=== PATIENT | male | born 1970 | race Caucasian/White ===

== ENCOUNTER 2024-03-07 19:38 | Emergency (ER) | payer BC, SELFPAY ==
[2024-03-07 19:40] VITALS: BP 155/110
[2024-03-07 20:38] LABS: % Basophils 0.7 % (0-2); % Eosinophils 1.1 % (0-6); % Immature Granulocytes 0.4 % (0-0.5); % Lymphocytes 17.9 % (20.5-51.1); % Monocytes 8.5 % (1.7-9.3); % Neutrophils 71.4 % (42.2-75.2); Absolute Basophils 0.1 10^3/uL (0-0.2); Absolute Eosinophils 0.1 10^3/uL (0-0.7); Absolute Lymphocytes 1.4 10^3/uL (1.2-3.4); Absolute Monocytes 0.7 10^3/uL (0.1-0.6); Absolute Neutrophils 5.7 10^3/uL (1.4-6.5); Hematocrit 39.5 % (39.0-52.0); Hemoglobin 14.7 g/dL (13.0-18.0); Mean Corp Hgb Conc. 37.2 g/dL (33.0-37.0); Mean Corpuscular Hgb 32.5 pg (27.0-31.0); Mean Corpuscular Volume 87.4 fL (80.0-94.0); Mean Platelet Volume 9.9 fL (7.4-10.4); Nucleated Red Blood Cells % 0 % (-); Platelet Count 214 10^3/uL (130-400); Red Blood Cell Count 4.52 10^6/uL (4.70-6.10); Red Cell Dist. Width 13.2 % (11.5-14.5)
[2024-03-07] MEDS: TORADOL 30 MG IV (20:56)
[2024-03-07 21:05] LABS: ALT (SGPT) 34 U/L (0-50); AST (SGOT) 32 U/L (17-59); Albumin 4.1 g/dl (3.5-5.0); Alkaline Phosphatase 80 U/L (38-126); Blood Urea Nitrogen 18 mg/dl (9-20); Calcium 9.5 mg/dl (8.4-10.2); Carbon Dioxide 25 mmol/L (22-30); Chloride 107 mmol/L (98-107); Glucose 113 mg/dl (70-99); Potassium 3.7 mmol/L (3.5-5.1); Sodium 139 mmol/L (135-145); Total Bilirubin 0.8 mg/dl (0.2-1.3); Total Protein 6.7 g/dl (6.3-8.2); eGFR > 60.00
[2024-03-07 21:06] LABS: Lipase 108 U/L (23-300)
[2024-03-07 21:18] LABS: Urine Albumin Negative (Neg - Trace); Urine Bilirubin Negative (Negative); Urine Character Clear (Clear); Urine Color Yellow; Urine Glucose Negative (Negative); Urine Ketone Negative (Negative); Urine Leukocyte Negative (Negative); Urine Nitrite Negative (Negative); Urine Occult Blood Negative (Negative); Urine Specific Gravity 1.015 (<1.030); Urine Urobilinogen Negative (Neg - 1+)
[2024-03-07 21:21] VITALS: BP 137/81
--- NOTE | 2024-03-07 22:41 | ED.GENMED ---
History of Present Illness
General
Chief Complaint: Abdominal Pain
Source: patient
Exam Limitations: none
Time Seen by Provider: 03/07/24 20:07
Nursing documentation reviewed up to this point in time: agreed with
Travel History
Have you had any contact with someone who has COVID-19?: No
Do you have any symptoms of coronavirus? Fever > 100 degrees, chills, cough, shortness of breath, sore throat, loss of taste or smell, muscle aches, or headache?: No
History of Present Illness
History of Present Illness:
53-year-old male presenting to the emergency department today for concerns of left lower quadrant. Symptoms started 3 days ago gradually worsening. Denies nausea vomiting has had diarrhea denies any fevers chest pain shortness of breath.
Past History
Past History
ED Past Medical History: GERD and HTN
ED Past Surgical History: Appendectomy, Orthopedic and Other (4 hernia surgeries Corneal transplant)
Social History
Tobacco: Non-smoker
Alcohol: Occasional
Personal:
Living: with family
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
Review of Systems
Review of Systems
Allergies reviewed?: Yes
All Other Systems: ROS reviewed and negative except as documented in HPI and ROS
Phy Exam
Physical Exam
Physical Exam:
GENERAL: Alert , in no apparent distress
EYE: pupils equal and reactive
NECK: Supple, no significant adenopathy.
ENT: o/p clr, mmm.
CARDIAC: Regular rate and rhythm .
LUNGS: Clear breath sounds bilaterally, no acute respiratory distress, no wheezes/rales/rhonchi
ABDOMEN left lower quadrant abdominal pain otherwise benign abdomen
NEUROLOGICAL: Alert and oriented, no focal neuro deficits
SKIN: Warm and dry, skin intact.
MUSCULOSKELETAL: No edema, well perfused.
PSYCH: Normal and appropriate interaction.
Course
Orders/Labs/Results
Orders:
Orders
03/07/24 20:25
IV Insert/Care/Rem.- Treatment PRN
03/07/24 20:28
Complete Blood Count/With Diff Urgent
Comprehensive Metabolic Panel Urgent
Lipase Urgent
03/07/24 20:49
CT Abd/Pel (IV only)-DH only Urgent
Comment:
Reason For Exam: llq pain
Ketorolac [Toradol] 30 mg IV NOW STA
03/07/24 21:10
Urinalysis Reflex To Culture Urgent
Date Specimen was Collected: 03/07/24
Time Specimen was Collected: 21:07
03/07/24 22:41
Amoxicillin 875 mg/Clav 125 mg [Augmentin 875 mg/125 mg] 1 tablet PO NOW STA
Abnormal Lab Results
03/07/24
20:28
RBC 4.52 L 10^6/uL
(4.70-6.10)
MCH 32.5 H pg
(27.0-31.0)
MCHC 37.2 H g/dL
(33.0-37.0)
Absolute Monos (auto) 0.7 H 10^3/uL
(0.1-0.6)
Lymphocytes % 17.9 L %
(20.5-51.1)
Glucose 113 H mg/dl
(70-99)
03/07/24 20:28
03/07/24 20:28
Vital Signs
Initial and Last Documented VS:
Initial Vital Signs
Temp Pulse Resp BP Pulse Ox
98.2 F 83 16 155/110 97
03/07/24 19:40 03/07/24 19:40 03/07/24 19:40 03/07/24 19:40 03/07/24 19:40
Last Documented Vital Signs
Temp Pulse Resp BP Pulse Ox
98.2 F 69 18 137/81 98
03/07/24 19:40 03/07/24 21:21 03/07/24 21:21 03/07/24 21:21 03/07/24 21:21
MDM/Problems Addressed
MDM/Problems Addressed:
53-year-old male presenting to the emergency department with 3 days of worsening left lower quad abdominal pain with mild diarrhea. No nausea or vomiting. Signs normal here afebrile. Labs normal. CT scan showing mild diverticulitis. Patient
started on antibiotics and given information for GI follow-up. Return precautions given.
*Critical Care Note
Total Time (30-74mins, 75-104mins- exclusive of procedures): Not Applicable
ED Attending Note
-
Portions of this chart may have been created with voice recognition software.� Occasional wrong word or��sound alike� substitutions may have occurred due to the inherent limitations of voice recognition software.
Discharge Plan
Departure
Patient Disposition: Home (Routine Discharge)
Date of Disposition: 03/07/24
Time of Disposition: 22:41
Patient with high blood pressure during this ER visit?: No
Condition: Good
Covid-19: Not Applicable
Discharge Problem:
Diverticulitis
Instructions: Diverticulitis (DC)
Prescriptions:
New
amoxicillin-pot clavulanate 875-125 mg tablet
1 tab PO Q12H 7 Days Qty: 14 0RF
Referrals:
Wei Douglass MD [Active] - Follow up in 5-7 days
Silvia Handley DO [Family Provider] -
Activity Restrictions/Additional Instructions:
You came to the emergency department today with concerns of left lower quadrant pain. You are found to have diverticulitis.. Please take Augmentin twice daily and progress your diet over the next week or so. Please follow up close with GI.
Return to the emergency department for worsening, new or concerning symptoms
Interventions
Interventions:
*Risk Screen - Suicide Last Done: 03/07/24 20:31
*General Assessment Last Done: 03/07/24 19:40
*Neglect/Abuse Screening Last Done: 03/07/24 20:31
ED- Fall Risk Assessment Last Done: 03/07/24 20:31
*ED COVID-19 Vaccine History Last Done: 03/07/24 19:40
LS-Ugeuwp-Ntxqkgacew Assessment Last Done: 03/07/24 20:03
Discharge Date and Time
Print Language: PORTUGUESE
[2024-03-07] MEDS: AUGMENTIN 875 MG/125 MG 1 TABLET PO (22:49)
== END 2024-03-07 23:04 | disposition home or self-care (01) ==
LOC: EMR 19:38
PROVIDERS: Physician Assistant; EMERGENCY PHYSICIAN Emergency Medicine; FAMILY PHYSICIAN Family Medicine Addiction Medicine
DX: K57.92 Diverticulitis of intestine, part unspecified, without perforation or abscess without bleeding (principal); K21.9 Gastro-esophageal reflux disease without esophagitis; I10 Essential (primary) hypertension
CPT/HCPCS: 99284; 96374; 74177; 80053; 81003; 83690; 85025; Q9967

== ENCOUNTER 2025-04-01 07:48 | Emergency (ER) | payer BC, SELFPAY ==
[2025-04-01 07:51] VITALS: BP 157/100
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
== END 2025-04-01 11:26 | disposition home or self-care (01) ==
LOC: EMR 07:48
PROVIDERS: EMERGENCY PHYSICIAN Emergency Medicine
DX: M25.462 Effusion, left knee (principal); M79.604 Pain in right leg; M71.22 Synovial cyst of popliteal space [Baker], left knee; M17.12 Unilateral primary osteoarthritis, left knee; I10 Essential (primary) hypertension; K21.9 Gastro-esophageal reflux disease without esophagitis; Z56.6 Other physical and mental strain related to work; Z88.8 Allergy status to other drugs, medicaments and biological substances
CPT/HCPCS: 99284; 73564; 93971

== ENCOUNTER → 2025-05-26 20:20 | Outpatient (REF) | payer BC, SELFPAY | LOC: MRI 3T 20:20 | PROVIDERS: ATTENDING PHYSICIAN Orthopaedic Surgery; FAMILY PHYSICIAN Family Medicine Addiction Medicine | DX: M23.92 Unspecified internal derangement of left knee (principal) | CPT/HCPCS: 73721 ==

== ENCOUNTER 2025-07-16 02:53 | Emergency (ER) | payer BC, SELFPAY ==
[2025-07-16 02:57] VITALS: BP 144/93
[2025-07-16 03:17] VITALS: BP 152/94
[2025-07-16 03:19] VITALS: BMI 31.4
[2025-07-16] MEDS: TORADOL 30 MG IM (04:11)
--- NOTE | 2025-07-16 04:15 | ED.GENMED ---
History of Present Illness
General
Chief Complaint: Musculo-Skeletal Complaint
Source: patient
Exam Limitations: none
Time Seen by Provider: 07/16/25 03:31
Nursing documentation reviewed up to this point in time: agreed with
History of Present Illness
History of Present Illness:
The patient is a 54-year-old male with pmh of htn, herniated discs, osteoarthritis, who presents with generalized joint pain described as worsening over the last two and a half weeks. The patient reports having surgery on the left knee for a
meniscus tear on the , prior to which he received a shingles vaccination. He initially attributed shoulder pain to the vaccination; however, the pain has since progressed. The patient describes experiencing severe pain primarily in both
shoulders, worsened during movement, and a sensation that is particularly intense in the left shoulder, extending to the bicep and elbow. Pain was described as 'like a knife gouging' into the shoulder. The patient reports profound weakness, noting
difficulty in rising from a chair without assistance, dressing, or lifting his arms above a certain height. The pain and weakness are most severe in the morning, improving slightly with movement. He also mentions a sensation of tingling in the
hands. The patient has been unable to sleep due to the shoulder pain, which prompted a visit to the Emergency Room after consultation with his primary care physician was unavailable. He denies any obvious injury, recent heavy lifting, or infection
symptoms. He has not experienced similar symptoms in the past. The post-surgical administration of hydrocodone for his knee pain was ineffective against his generalized pain.
Past History
Past History
ED Past Medical History: GERD and HTN
ED Past Surgical History: Appendectomy, Orthopedic and Other (4 hernia surgeries Corneal transplant)
Social History
Tobacco: Non-smoker
Alcohol: Occasional
Personal:
Living: with family
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
Review of Systems
Review of Systems
All Other Systems: ROS reviewed and negative except as documented in HPI and ROS
Phy Exam
General Physical Exam
General Presentation: well appearing and no apparent distress
General Skin: warm and dry
General Habitus: normal
General Mental: alert
General Hydration: appears well hydrated
ENT Exam
ENT Exam: EOMI
Eye Exam
Eye Exam: PERRL and EOMI
Cardiovascular Exam
Cardiovascular Exam: regular rate/rhythm and no murmur
Pulmonary Exam
Pulmonary Exam: lungs clear
Neurological Exam
Neurological Exam: alert, oriented x3, CN II-XII intact, no motor deficits and no sensory deficits
Musculoskeletal Exam
Musculoskeletal Exam: full ROM (Full ROM of bilateral upper and lower extremities, no bony deformities, pain illicited with abduction of the shoulders bilaterally and flexion of the hips) and no edema
Skin Exam
Skin Exam: normal color and warm/dry
Psychiatric Exam
Psychiatric Exam: normal mood/affect
Course
Orders/Labs/Results
Orders:
Orders
07/16/25 03:45
Ketorolac [Toradol] 30 mg IM NOW STA
07/16/25 03:47
CR Shoulder - Left Min 2 View* Urgent
Comment:
Reason For Exam: left ant shoulder pain
07/16/25 04:07
CPK [Creatine Phosphokinase] Urgent
CRP [C-Reactive Protein] Urgent
Complete Blood Count/With Diff Urgent
Comprehensive Metabolic Panel Urgent
ESR [Erythrocyte Sed Rate] Urgent
Abnormal Lab Results
07/16/25
04:07
RBC 4.56 L 10^6/uL
(4.70-6.10)
Neutrophils % 76.7 H %
(42.2-75.2)
Lymphocytes % 14.5 L %
(20.5-51.1)
ESR 25 H mm/hour
(0-20)
Glucose 120 H mg/dl
(70-99)
Creatine Kinase 51 L U/L
(55-170)
C-Reactive Protein 44.80 H mg/L
(0.0-10.00)
07/16/25 04:07
07/16/25 04:07
Vital Signs
Initial and Last Documented VS:
Initial Vital Signs
Temp Pulse Resp BP Pulse Ox
98.6 F 85 16 144/93 97
07/16/25 02:57 07/16/25 02:57 07/16/25 02:57 07/16/25 02:57 07/16/25 02:57
Last Documented Vital Signs
Temp Pulse Resp BP Pulse Ox
98.6 F 82 16 151/92 95
07/16/25 02:57 07/16/25 06:22 07/16/25 06:22 07/16/25 06:22 07/16/25 06:22
MDM/Problems Addressed
Differential Diagnosis Includes:
1. Polymyositis
2. Rheumatoid arthritis
3. Rotator cuff tendonitis or tear
4. Myofascial pain syndrome
5. Cervical radiculopathy
6. Subacromial bursitis
7. Frozen shoulder (Adhesive capsulitis)
8. Fibromyalgia
9. Rhabdomyolysis
10. Osteoarthritis
MDM/Problems Addressed:
The patient is a 54-year-old male with pmh of htn, herniated discs, osteoarthritis, who presents with generalized joint pain described as worsening over the last two and a half weeks. Pain is localized to bilateral hips and shoulders. He also has
proximal muscle weakness. No inciting trauma. Pain did slightly improve with toradol and muscle relaxant. CK is not elevated. Inflammatory markers are elevated, symptoms concerning for a polymyositis vs osteoarthritis. Spoke with ED attending. Will
trial course of Prednisone, I recommended that patient be evaluated by rheumatology. Patient stable for discharge. Discussed strict return precautions.
*Pulse Oximetry
SaO2: 97
Oxygen Mode of Delivery: Room air
Patient hypoxic: no
*Critical Care Note
Total Time (30-74mins, 75-104mins- exclusive of procedures): Not Applicable
ED Attending Note
-
Portions of this chart may have been created with voice recognition software.� Occasional wrong word or��sound alike� substitutions may have occurred due to the inherent limitations of voice recognition software.
Discharge Plan
Departure
Patient Disposition: Home (Routine Discharge)
Date of Disposition: 07/16/25
Time of Disposition: 06:15
Patient with high blood pressure during this ER visit?: Yes
Condition: Good
Discharge Problem:
Myalgia, Bilateral shoulder pain
Instructions: Muscle, joint, and bone pain (DC), BLOOD PRESSURE
Prescriptions:
New
cyclobenzaprine 10 mg tablet
10 mg PO TIDPRN PRN (Reason: muscle spasm) Qty: 13 0RF
prednisone 20 mg tablet
40 mg PO DAILY 5 Days Qty: 10 0RF
No Action
amoxicillin-pot clavulanate 875-125 mg tablet
1 tab PO Q12H 7 Days Qty: 14 0RF
hydrocodone-acetaminophen 5-325 mg tablet
1 tab PO BID PRN (Reason: Pain) Qty: 7 0RF
methylprednisolone [Medrol (Michael)] 4 mg tablets,dose pack
See Rx Instructions .ROUTE .COMPLEX Qty: 21 0RF
Rx Instructions:
orally per package directions
Referrals:
Silvina Loera MD [Active, Rheumatology] - Call in 1-3 days for appt
Activity Restrictions/Additional Instructions:
Please start taking prednisone. Please start taking 40 mg once daily for 5 days. You can also take cyclobenzaprine up to 3 times daily as needed, I recommend taking a dose before sleep. Please do not take this while driving.
Please call the attached number to schedule an appointment with rheumatology.
PLEASE RETURN TO THE ER SHOULD YOU DEVELOP INTRACTABLE NAUSEA OR VOMITING, INABILITY TO AMBULATE, FEVERS, SWELLING OR REDNESS IN YOUR EXTREMETIES, OR ANY OTHER SIGNS OR SYMPTOMS WORRISOME TO YOU.
Interventions
Interventions:
*Risk Screen - Suicide Last Done: 07/16/25 02:57
*General Assessment Last Done: 07/16/25 03:19
*Neglect/Abuse Screening Last Done: 07/16/25 03:19
*ED- Fall Risk Assessment Last Done: 07/16/25 03:19
*ED COVID-19 Vaccine History Last Done: 07/16/25 03:19
*ED Influenza Vaccine History Last Done: 07/16/25 03:19
*Nursing Disposition Last Done: 07/16/25 06:22
ED-Musculoskeletal Assessment Last Done: 07/16/25 03:21
Discharge Date and Time
Discharge Date/Time: 07/16/25 06:24
Print Language: HUNGARIAN
[2025-07-16 04:18] LABS: Hematocrit 41.2 % (39.0-52.0); Hemoglobin 14.1 g/dL (13.0-18.0); Mean Corp Hgb Conc. 34.2 g/dL (33.0-37.0); Mean Corpuscular Volume 90.4 fL (80.0-94.0); Nucleated Red Blood Cells % 0 % (-); Platelet Count 291 10^3/uL (130-400); Red Cell Dist. Width 12.3 % (11.5-14.5)
[2025-07-16 04:35] VITALS: BP 140/87
[2025-07-16 04:39] VITALS: BP 140/70
[2025-07-16 04:40] LABS: ALT (SGPT) 25 U/L (0-50); AST (SGOT) 18 U/L (17-59); Albumin 4.2 g/dl (3.5-5.0); Alkaline Phosphatase 87 U/L (38-126); Blood Urea Nitrogen 13 mg/dl (9-20); Calcium 9.3 mg/dl (8.4-10.2); Carbon Dioxide 28 mmol/L (22-30); Chloride 107 mmol/L (98-107); Estimated Creatinine Clearance > 125 ml/min; Glucose 120 mg/dl (70-99); Potassium 4.1 mmol/L (3.5-5.1); Sodium 141 mmol/L (135-145); Total Protein 7.0 g/dl (6.3-8.2); eGFR > 60.00
[2025-07-16 04:43] LABS: C-Reactive Protein 44.80 mg/L (0.0-10.00)
[2025-07-16 06:22] VITALS: BP 151/92
== END 2025-07-16 06:24 | disposition home or self-care (01) ==
LOC: EMR 02:53
PROVIDERS: Physician Assistant; EMERGENCY PHYSICIAN Student in an Organized Health Care Education/Training Program; FAMILY PHYSICIAN Family Medicine Addiction Medicine
DX: M79.18 Myalgia, other site (principal); M25.512 Pain in left shoulder; M25.511 Pain in right shoulder; I10 Essential (primary) hypertension; R20.2 Paresthesia of skin
CPT/HCPCS: 96372; 99284; 73030; 80053; 82550; 85025; 85652; 86140

== ENCOUNTER → 2025-07-25 06:08 | Outpatient (REF) | payer BC, SELFPAY ==
[2025-07-25 10:27] LABS: Hematocrit 41.2 % (39.0-52.0); Hemoglobin 14.0 g/dL (13.0-18.0); Mean Corp Hgb Conc. 34.0 g/dL (33.0-37.0); Mean Corpuscular Volume 90.4 fL (80.0-94.0); Nucleated Red Blood Cells % 0 % (-); Platelet Count 283 10^3/uL (130-400); Red Cell Dist. Width 12.3 % (11.5-14.5)
[2025-07-25 10:29] LABS: Urine Character Clear (Clear)
[2025-07-25 10:39] LABS: ALT (SGPT) 32 U/L (0-50); AST (SGOT) 21 U/L (17-59); Albumin 3.9 g/dl (3.5-5.0); Alkaline Phosphatase 81 U/L (38-126); Blood Urea Nitrogen 14 mg/dl (9-20); Calcium 9.2 mg/dl (8.4-10.2); Carbon Dioxide 27 mmol/L (22-30); Chloride 107 mmol/L (98-107); Glucose 119 mg/dl (70-99); HDL Cholesterol 66 mg/dl; Potassium 4.1 mmol/L (3.5-5.1); Sodium 140 mmol/L (135-145); Total Protein 6.7 g/dl (6.3-8.2); eGFR > 60.00
[2025-07-25 10:42] LABS: Urine Red Blood Cell 0-2 /HPF (0-2)
[2025-07-25 10:50] LABS: Glycohemoglobin (HgbA1c) 4.9 % (4.0-5.6)
[2025-07-25 10:50] LABS: LDL Cholesterol, Calculated 91 mg/dl; Very Low Density Lipoprotein 14 mg/dl (0-30)
[2025-07-25 13:35] LABS: Hepatitis B Surface Antigen Negative (Negative)
[2025-07-25 14:12] LABS: Hepatitis C Antibody Negative (Negative)
== END ==
LOC: HWLAB 06:08
PROVIDERS: FAMILY PHYSICIAN Family Medicine Addiction Medicine
DX: Z13.6 Encounter for screening for cardiovascular disorders (principal); Z13.0 Encounter for screening for diseases of the blood and blood-forming organs and certain disorders involving the immune mechanism; Z13.1 Encounter for screening for diabetes mellitus; Z11.59 Encounter for screening for other viral diseases
CPT/HCPCS: 36415; 80053; 80061; 81003; 81015; 83036; 84443; 85025; 86706; 86709; 86803; 87340; 87389

== ENCOUNTER → 2025-07-30 06:07 | Outpatient (REF) | payer BC, SELFPAY ==
[2025-07-30 09:44] LABS: Uric Acid 5.8 mg/dl (3.5-8.5)
[2025-07-30 09:47] LABS: C-Reactive Protein 7.40 mg/L (0.0-10.00)
[2025-07-31 15:09] LABS: Rheumatoid Agglutinin Less Than 10 IU (<10 IU)
== END ==
LOC: HWLAB 06:07
PROVIDERS: ATTENDING PHYSICIAN Family Medicine Addiction Medicine
DX: M35.3 Polymyalgia rheumatica (principal); M25.50 Pain in unspecified joint
CPT/HCPCS: 36415; 82550; 84550; 85652; 86140; 86430

== ENCOUNTER 2025-08-03 14:39 | Observation (INO) | payer BC, SELFPAY ==
[2025-08-03 06:20] VITALS: BP 170/107
[2025-08-03 06:23] VITALS: BMI 31.0
--- NOTE | 2025-08-03 08:37 | ED.GENMED ---
History of Present Illness
<Rita Lozano PA-C - Last Filed: 08/03/25 13:30>
General
Chief Complaint: Musculo-Skeletal Complaint
Source: patient, records and spouse
Exam Limitations: none
Time Seen by Provider: 08/03/25 08:12
History of Present Illness
History of Present Illness:
54yoM with a history of hypertension and hyperlipidemia presenting for evaluation of arthralgias. Symptoms began over a month ago. He reports diffuse pains which are worse in the bilateral shoulder, low back, and bilateral calf regions. Symptoms
began around the time that he had a shingles vaccine. Patient had a left meniscus repair on 06/27/2025 at [facility] but pain started prior to this. Patient was seen in the ED on 07/16/2025 for the symptoms and is also been seen by his PCP. He has
been prescribed steroids twice which do help although his symptoms return shortly after stopping this. He describes the pain as excruciating and it feels like he is 'paralyzed' due to the pain. He was prescribed methocarbamol by his PCP which does
not help. Patient was unable to get up in the middle of the night due to his pain. He slid out of his recliner and could not get up. He states he was on the ground from 1 to 4 AM and had to call EMS. Patient had blood work a few days ago
including ESR, CRP, rheumatoid factor, and CK levels which were unremarkable. He is scheduled to see a piece meat trimmer tomorrow. He denies any joint swelling, joint redness, rashes, fevers, paresthesias, incontinence. No history of malignancy or
IV drug use.
Past History
<Rita Lozano PA-C - Last Filed: 08/03/25 13:30>
Past History
ED Past Medical History: GERD and HTN
ED Past Surgical History: Appendectomy, Orthopedic and Other (4 hernia surgeries Corneal transplant)
Social History
Tobacco: Non-smoker
Alcohol: Occasional
Personal:
Living: with family
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
Phy Exam
<Rita Lozano PA-C - Last Filed: 08/03/25 13:30>
General Physical Exam
General Presentation: well appearing and no apparent distress
General Skin: warm and dry
General Habitus: normal
General Mental: alert
ENT Exam
ENT Exam: normocephalic
Pulmonary Exam
Pulmonary Exam: no respiratory distress
Musculoskeletal Exam
Musculoskeletal Exam: other (No joint swelling or erythema noted. ROM of both shoulders and hips significantly limited 2/2 pain.)
Skin Exam
Skin Exam: normal color and warm/dry
Psychiatric Exam
Psychiatric Exam: normal mood/affect
Course
<Rita Lozano PA-C - Last Filed: 08/03/25 13:30>
Orders/Labs/Results
Orders:
Orders
08/03/25 08:37
HYDROmorphone [Dilaudid] 1 mg IV NOW STA
CR Lumbar Spine Comp Min 4 Vw* Urgent
Comment:
Reason For Exam: low back pain
08/03/25 09:16
CRP [C-Reactive Protein] Urgent
Complete Blood Count/With Diff Urgent
Comprehensive Metabolic Panel Urgent
ESR [Erythrocyte Sed Rate] Urgent
Lyme Progressive Urgent
Total CK [Creatine Phosphokinase] Urgent
08/03/25 10:50
Dexamethasone Sod Phosphate [Decadron] 10 mg IV NOW STA
HYDROmorphone [Dilaudid] 1 mg IV NOW STA
Ketorolac [Toradol] 15 mg IV NOW STA
08/03/25 11:22
Ondansetron Injectable [Zofran] 4 mg .ROUTE .STK-MED ONE
08/03/25 11:26
Ondansetron Injectable [Zofran] 4 mg IV NOW STA
Abnormal Lab Results
08/03/25
09:16
MCH 31.1 H pg
(27.0-31.0)
Abs Immat Gran (auto) 0.1 H 10^3/uL
(0-0.05)
Absolute Neuts (auto) 8.3 H 10^3/uL
(1.4-6.5)
Absolute Lymphs (auto) 1.0 L 10^3/uL
(1.2-3.4)
Absolute Monos (auto) 0.8 H 10^3/uL
(0.1-0.6)
Neutrophils % 80.8 H %
(42.2-75.2)
Lymphocytes % 10.2 L %
(20.5-51.1)
Chloride 108 H mmol/L
(98-107)
Glucose 125 H mg/dl
(70-99)
Total Bilirubin 1.4 H mg/dl
(0.2-1.3)
Creatine Kinase 30 L U/L
(55-170)
C-Reactive Protein 33.50 H mg/L
(0.0-10.00)
08/03/25 09:16
08/03/25 09:16
Vital Signs
Initial and Last Documented VS:
Initial Vital Signs
Temp Pulse Resp BP Pulse Ox
98.1 F 90 18 170/107 97
08/03/25 06:20 08/03/25 06:20 08/03/25 06:20 08/03/25 06:20 08/03/25 06:20
Last Documented Vital Signs
Temp Pulse Resp BP Pulse Ox
98.1 F 90 18 170/107 97
08/03/25 06:20 08/03/25 06:20 08/03/25 06:20 08/03/25 06:20 08/03/25 08:38
<Karlos Florian MD - Last Filed: 08/03/25 13:06>
Orders/Labs/Results
Orders:
Orders
08/03/25 08:37
HYDROmorphone [Dilaudid] 1 mg IV NOW STA
CR Lumbar Spine Comp Min 4 Vw* Urgent
Comment:
Reason For Exam: low back pain
08/03/25 09:16
CRP [C-Reactive Protein] Urgent
Complete Blood Count/With Diff Urgent
Comprehensive Metabolic Panel Urgent
ESR [Erythrocyte Sed Rate] Urgent
Lyme Progressive Urgent
Total CK [Creatine Phosphokinase] Urgent
08/03/25 10:50
Dexamethasone Sod Phosphate [Decadron] 10 mg IV NOW STA
HYDROmorphone [Dilaudid] 1 mg IV NOW STA
Ketorolac [Toradol] 15 mg IV NOW STA
08/03/25 11:22
Ondansetron Injectable [Zofran] 4 mg .ROUTE .STK-MED ONE
08/03/25 11:26
Ondansetron Injectable [Zofran] 4 mg IV NOW STA
Abnormal Lab Results
08/03/25
09:16
MCH 31.1 H pg
(27.0-31.0)
Abs Immat Gran (auto) 0.1 H 10^3/uL
(0-0.05)
Absolute Neuts (auto) 8.3 H 10^3/uL
(1.4-6.5)
Absolute Lymphs (auto) 1.0 L 10^3/uL
(1.2-3.4)
Absolute Monos (auto) 0.8 H 10^3/uL
(0.1-0.6)
Neutrophils % 80.8 H %
(42.2-75.2)
Lymphocytes % 10.2 L %
(20.5-51.1)
Chloride 108 H mmol/L
(98-107)
Glucose 125 H mg/dl
(70-99)
Total Bilirubin 1.4 H mg/dl
(0.2-1.3)
Creatine Kinase 30 L U/L
(55-170)
C-Reactive Protein 33.50 H mg/L
(0.0-10.00)
08/03/25 09:16
08/03/25 09:16
Vital Signs
Initial and Last Documented VS:
Initial Vital Signs
Temp Pulse Resp BP Pulse Ox
98.1 F 90 18 170/107 97
08/03/25 06:20 08/03/25 06:20 08/03/25 06:20 08/03/25 06:20 08/03/25 06:20
Last Documented Vital Signs
Temp Pulse Resp BP Pulse Ox
98.1 F 90 18 170/107 97
08/03/25 06:20 08/03/25 06:20 08/03/25 06:20 08/03/25 06:20 08/03/25 08:38
<Rita Lozano PA-C - Last Filed: 08/03/25 13:30>
MDM/Problems Addressed
Differential Diagnosis Includes:
54yoM here with diffuse joint/muscle pains for >1 month. Unable to get off floor last night due to pain. Has been on steroids 2x which help. Scheduled to see rheum tomorrow. He is hypertensive with otherwise stable vitals. No joint swelling
appreciated on exam. ROM of all extremities are limited due to pain. Differential diagnosis includes but is not limited to: PMR, polymyositis, Lyme disease, osteoarthritis, other rheumatologic disorder
Initial ED plan: Check CBC, CMP, ESR/CRP, Lyme disease. IV Dilaudid for pain.
<Rita Lozano PA-C - Last Filed: 08/03/25 13:30>
*Pulse Oximetry
SaO2: 97
Oxygen Mode of Delivery: Room air
Patient hypoxic: no
*Critical Care Note
Total Time (30-74mins, 75-104mins- exclusive of procedures): Not Applicable
<Rita Lozano PA-C - Last Filed: 08/03/25 13:30>
Update Note
Update Note:
CRP mildly elevated but ESR within normal limits. CK normal. Patient given most rounds of Dilaudid as well as Decadron and Toradol for pain without any relief. He continues to be unable to ambulate due to the discomfort. Patient does not feel
that he can function at home at his current status and is requesting admission. He understands that he will likely miss his rheumatology appointment tomorrow. Patient admitted for further management.
ED Attending Note
<Rita Lozano PA-C - Last Filed: 08/03/25 13:30>
-
Portions of this chart may have been created with voice recognition software.� Occasional wrong word or��sound alike� substitutions may have occurred due to the inherent limitations of voice recognition software.
<Karlos Florian MD - Last Filed: 08/03/25 13:06>
ED Attending Note
Patient seen and examined by attending physician: Yes
ED Attending Note:
I have seen and evaluated the patient with a [id number] encounter. I have spoken to the advance practicer provider and involved in the medical history, the physical exam, medical decision making.
Evaluation and management service: agree unless noted differently below.
Results interpretation: agree unless noted differently below.
Focused HPI: 54-year-old male with history as noted presents for evaluation of whole body pain. Patient reports symptoms have been ongoing and generally worsening over the past 4 to 6 weeks. He says initially he started with bilateral upper
arm/shoulder pain after receiving his shingles vaccination in his right upper arm in early June. He says that initially he was having quite severe shoulder/upper arm pain and his primary doctor was planning to start him on a course of steroids
but held off because he was scheduled to have surgery on his left knee for meniscus tear. He had the surgery on 06/24 through [facility]. After surgery he has continued to have severe shoulder pains and has progressed to back pain, buttock pain, thigh
pain, calf pain bilaterally. He says it has gotten to the point where he cannot move. He ultimately presented to the emergency room on 07/16/2025 and was prescribed a course of steroids. He says his symptoms improved while on steroids but when he
tapered off symptoms returned once again. His primary doctor apparently wrote him for another course of steroids but again when he tapered off the steroids symptoms returned. He says that over the past few days pain has become so severe that he
cannot move. He says this morning it took him 45 minutes to get from his bed to a nearby chair to sit. He says that after sitting there for a few hours he tried to stand up and immediately dropped to his bottom because he was in so much pain. EMS
was called to bring to the hospital. He does report that he was referred to a piece meat trimmer and is supposed to see someone tomorrow.
Physical exam: Patient is awake and alert and appears comfortable during my assessment. He is hypertensive but has otherwise normal vitals. He has no edema in his extremities. He has no erythema or warmth/rash. He is moving all extremities but
reports pain on range of motion of the arms and the legs. No focal weakness appreciated.
Medical Decision Makin-year-old male presents with essentially whole body pain�and started with pain in the shoulders and upper arms and progressed to back, buttock, legs. He says it is at the point where he can barely move. Vitals and exam
as above. Labs here are essentially unremarkable. His CBC and CMP showed no clinically significant abnormalities. His CPK is normal, CRP marginally elevated but ESR normal. X-ray of the lumbar spine no acute abnormalities. I had a long
discussion with the patient about his treatment plan. He was given multiple medications here and he says he still cannot stand because he has pain all over. 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 We did restart steroids here. Patient says that
he cannot go home because he cannot function. He says that his is too small to help him if he falls and overall he cannot manage with his symptoms at home. I explained to the patient that admission would not likely be of benefit and that it
would likely cause him to miss his rheumatology appointment tomorrow which is I believe the next best step for him in his care. I did try to reach out to his piece meat trimmer to see if they could coordinate/reschedule his appointment given this acute
flareup but unfortunately I had trouble getting in touch with them. Patient indicated he understands he may not be seen by rheumatology in the hospital and that admission will likely cause him to miss his appointment tomorrow but still feels that
he needs to be admitted because of his very poorly controlled pain and limited functional status. Will discuss with hospitalist.
Discharge Plan
Departure
Patient Disposition: Admit
Date of Disposition: 08/03/25
Time of Disposition: 13:11
Presentation/result/management discussed w/ accepting MD/DO: Hospitalist
Discharge Problem:
Intractable pain, Arthralgia
Prescriptions:
No Action
methocarbamol 500 mg Tablet
1,000 mg PO QID
amlodipine [Norvasc] 10 mg Tablet
10 mg PO DAILY
pantoprazole [Protonix] 40 mg Tablet,Delayed Release (Dr/Ec)
40 mg PO DAILY
losartan 25 mg Tablet
25 mg PO DAILY
Referrals:
Silvia Handley DO [Family Provider]
Interventions
Interventions:
*Risk Screen - Suicide Last Done: 08/03/25 06:24
*General Assessment Last Done: 08/03/25 06:24
*Neglect/Abuse Screening Last Done: 08/03/25 06:24
*ED- Fall Risk Assessment Last Done: 08/03/25 06:24
*ED COVID-19 Vaccine History Last Done: 08/03/25 06:24
*ED Influenza Vaccine History Last Done: 08/03/25 06:24
ED-Musculoskeletal Assessment Last Done: 08/03/25 06:27
Discharge Date and Time
Print Language: BOLIVIAN
[2025-08-03] MEDS: DILAUDID 1 MG IV ×2 (09:19→11:21)
[2025-08-03 09:27] LABS: Hematocrit 45.1 % (39.0-52.0); Hemoglobin 15.3 g/dL (13.0-18.0); Mean Corp Hgb Conc. 33.9 g/dL (33.0-37.0); Mean Corpuscular Volume 91.7 fL (80.0-94.0); Nucleated Red Blood Cells % 0 % (-); Platelet Count 252 10^3/uL (130-400); Red Cell Dist. Width 12.8 % (11.5-14.5)
[2025-08-03 09:42] LABS: ALT (SGPT) 28 U/L (0-50); AST (SGOT) 17 U/L (17-59); Albumin 4.3 g/dl (3.5-5.0); Alkaline Phosphatase 77 U/L (38-126); Blood Urea Nitrogen 14 mg/dl (9-20); Calcium 9.4 mg/dl (8.4-10.2); Carbon Dioxide 26 mmol/L (22-30); Chloride 108 mmol/L (98-107); Estimated Creatinine Clearance > 125 ml/min; Glucose 125 mg/dl (70-99); Potassium 3.5 mmol/L (3.5-5.1); Sodium 138 mmol/L (135-145); Total Protein 7.2 g/dl (6.3-8.2); eGFR > 60.00
[2025-08-03 09:47] LABS: C-Reactive Protein 33.50 mg/L (0.0-10.00)
[2025-08-03] MEDS: TORADOL 15 MG IV (11:21)
[2025-08-03] MEDS: DECADRON 10 MG IV (11:21)
[2025-08-03] MEDS: ZOFRAN 4 MG IV (11:26)
[2025-08-03 14:00] VITALS: BP 129/87
--- NOTE | 2025-08-03 14:30 | HPS.HSE ---
Family Physician
-
Family Physician: Silvia Handley DO
Chief Complaint
-
shoulder and hip pain
History of Present Illness
54-year-old male is presenting from home with complaints of joint pain. Patient stated his symptoms started about 1 month ago. Stated he received shingles vaccine and a week or so afterwards he started noticing bilateral shoulder pain and hip
pain. States he recently underwent left knee repair and initially thought that he was compensating on the right leg and thus the pain was getting worse. However after the surgery patient stated persistent to have pain. Patient states of diffuse
bilateral shoulder and bilateral hip pain. States the pain mildly improves upon standing up. However while he is trying to flex his knee or hip states of excruciating hip pain which radiating to the calfs. Also states of unable to left bilateral
shoulder due to excruciating pain. States the pain is sharp in nature. States he saw his primary care doctor and underwent blood work. Primary care doctor started patient on prednisone which was weaned off. Patient said while he was on
prednisone his symptoms seems to have significantly improved. However as soon as the prednisone was weaned down he started noticing his symptoms were coming back. Patient came into the ER earlier in the month and received medications. Patient
received steroids. Patient stated his symptoms improved after he got a prednisone. However soon as prednisone was weaned off he said he started noticing bilateral shoulder and hip pain. Patient was recommended follow-up with rheumatology however
his rheumatology appointment set up for tomorrow. Overnight he stated of significant hip pain. Stated he tried to walk from his bed to the recliner and it took him approximately 45 minutes even though it was less than 20 feet distance. While in a
recliner patient tried to get up and had a fall. Patient was on the floor for few hours. EMS was called. Patient's he was unable to lift himself up on the floor due to excruciating hip pain. Also currently stating of bilateral shoulder pain.
States of chronic back pain due to herniated disc. Denies any recent fevers. Denies any viral upper respiratory tract infections.
Medical History
Past Medical History
Past Medical History: Reports HTN and Other
Additional Past Medical History:
Left knee tran cyst
Lumbar radiculopathy/herniated disc
Left knee surgery by Nancy
Past Surgical History: Reports Appendectomy and Other
Additional Past Surgical History:
<del>Left</del> <del>eye</del> <del>cornea</del> <del>transplant</del>
<del>Hernia</del> <del>surgery</del> <del>x</del> <del>4</del>
Social History
Tobacco: Non-smoker
Alcohol: Occasional
Personal:
Living: With Family
Employment: Employed
Family History
Family History: Not pertinent (Denies any autoimmune conditions in family)
Allergies / Home Medications
Allergies reflects when Allergies were last updated in [facility].
Home Medications with original date entered in [facility]
Allergy/Medication List:
Allergies
Allergy/AdvReac Type Severity Reaction Status Date / Time
metoclopramide (From Reglan) Allergy Severe Anaphylaxis Verified 07/16/25 02:56
Home Medications
amlodipine 10 mg tablet (Norvasc) 10 mg PO DAILY 08/03/25
losartan 25 mg tablet 25 mg PO DAILY 08/03/25
methocarbamol 500 mg tablet 1,000 mg PO QID 08/03/25
pantoprazole 40 mg tablet,delayed release (Protonix) 40 mg PO DAILY 08/03/25
Review of Systems
-
History Source: Patient
Constitutional: Reports No Symptoms
EENT: Reports No Symptoms
Respiratory: Reports No Symptoms
Cardiac: Reports No Symptoms
Abdomen/GI: Reports No Symptoms
: Reports No Symptoms
Musculoskeletal: Reports See HPI
Skin: Reports No Symptoms
Neurological: Reports Weakness (At times due to pain)
Endocrine: Reports No Symptoms
Hematologic/Lymphatic: Reports No Symptoms
Psych: Reports No Symptoms
Physical Exam
Vital Signs
Vital Signs
Temp Pulse Resp BP Pulse Ox
98.1 F 80 18 129/87 99
08/03/25 06:20 08/03/25 14:00 08/03/25 14:00 08/03/25 14:00 08/03/25 14:00
Physical Exam
General: Well Developed, Well Nourished and No Apparent Distress
HEENT: NormoCephalic, Moist mucous membranes and Atraumatic
Respiratory: Clear
Cardiac: S1/S2 and Regular Rhythm; No Murmur or Rub
GI: Soft, Non Tender, Non Distended and Normal Bowel Sounds; No Organomegaly
Rectal: Deferred by Provider
Musculoskeletal: No Clubbing, No Cyanosis, No Edema and Other (Tender to palpation bilateral shoulder.)
Skin: No Rash
Neuro: Awake, Alert, Oriented, AO x 3 and Nonfocal/grossly intact
Psych: Calm
Laboratory Results
-
08/03/25 09:16
08/03/25 09:16
Laboratory Results
Total Bilirubin 1.4 mg/dl (0.2-1.3) H 08/03/25 09:16
AST 17 U/L (17-59) 08/03/25 09:16
ALT 28 U/L (0-50) 08/03/25 09:16
Alkaline Phosphatase 77 U/L (38-126) 08/03/25 09:16
Impression/Plan
-
#Bilateral shoulder and hip pain likely secondary to autoimmune condition and suspected polymyalgia rheumatica versus low likelihood of polymyositis versus diffuse arthritis
CRP was elevated. ESR normal. CK was normal. TSH was recently checked and found to be normal
Patient says her symptoms improved with prednisone in the past.
Status post 10 mg of Decadron. Start patient on prednisone 50 mg daily
Patient probably will need to continue on prednisone until outpatient rheumatology follow-up.
Pain control
Tylenol, oxycodone and morphine as needed
Physical therapy evaluation
#Primary hypertension
Continue with Norvasc losartan
#Lumbar degenerative disease
Pain control
Physical therapy
DVT ppx Lovenox
Discussed with ER attending
I spent a total of 80 minutes with the patient or on the floor. More than 50% of this time involved counseling and coordination of care.
[2025-08-03 15:51] VITALS: BP 137/80
--- NOTE | 2025-08-03 16:00 | PTCARENOTE ---
Pt admitted to room 403-2, pt stood and pivoted from stretcher to bed with [id number]. VSS. Pt c/o 6/10 pain in knees and shoulders but states this is much improved from arrival to hospital. Pt oriented to room and has call wall within reach.
[2025-08-03] MEDS: MORPHINE SULFATE 2 MG IV ×2 (17:14→23:25)
[2025-08-03] MEDS: TYLENOL 975 MG PO ×2 (17:58→23:26)
[2025-08-03] MEDS: LOVENOX 40 MG SC (17:58)
[2025-08-03] MEDS: ROXICODONE 5 MG PO (20:08)
[2025-08-03 23:04] VITALS: BP 131/81
[2025-08-03] MEDS: MELATONIN 10 MG PO (23:26)
[2025-08-04 06:39] LABS: Hematocrit 43.7 % (39.0-52.0); Hemoglobin 14.8 g/dL (13.0-18.0); Mean Corp Hgb Conc. 33.9 g/dL (33.0-37.0); Mean Corpuscular Volume 92.8 fL (80.0-94.0); Nucleated Red Blood Cells % 0 % (-); Platelet Count 277 10^3/uL (130-400); Red Cell Dist. Width 12.3 % (11.5-14.5)
[2025-08-04 06:57] LABS: Blood Urea Nitrogen 23 mg/dl (9-20); Calcium 9.6 mg/dl (8.4-10.2); Carbon Dioxide 26 mmol/L (22-30); Chloride 107 mmol/L (98-107); Estimated Creatinine Clearance 121 ml/min; Glucose 130 mg/dl (70-99); Potassium 4.4 mmol/L (3.5-5.1); Sodium 140 mmol/L (135-145); eGFR > 60.00
[2025-08-04 07:20] VITALS: BP 150/90
[2025-08-04 07:39] LABS: Vitamin B12 220 pg/ml (239-931)
--- NOTE | 2025-08-04 07:55 | W.PN.HOSP.TC ---
Addendum entered and electronically signed by Bhupinder Peguero MD 08/04/25 22:30:
Attending Addendum:
I saw and evaluated the patient. I reviewed the resident�s note and agree with findings and plan as documented in the resident�s note. Sub: Feels greatly improved. Less muscle pain, Wants to go home. Full 12 point ROS reviewed and negative except as
documented Exam: Vitals reviewed in chart GEN-NAD heart RRR lungs clear LE MS 4/5 b/l LE and B/L UE pulses intact
#Bilateral shoulder and hip pain likely secondary to autoimmune condition and suspected polymyalgia rheumatica versus low likelihood of polymyositis versus diffuse arthritis
CRP was elevated. ESR normal. CK was normal. TSH was recently checked and found to be normal
Status post 10 mg of Decadron.
DC paitnet on long pred taper until outpatient rheumatology follow-up.
Pain control
Physical therapy-OP rehab
#Primary hypertension
Continue with Norvasc losartan
#Lumbar degenerative disease
Pain control
Physical therapy as OP
# Vit b12 deficiency-replete
DVT ppx Lovenox
Dispo DC home
Time spent coordinating care, DC planning, review of DC plan of care with resident, transition of care, review of records, med rec/scripts sent electronically, consults, notes, d/w consultants, nursing, and CM� 31 mins >50% of this time was devoted
to counseling and coordination of care
Original Note:
Today's Communication/Plan
-
Prednisone taper until he sees rheum: start 40 mg tomorrow for 5 days, then 30 mg for 5 days, 20 mg 5 days, 10 mg 5 days, and 5 mg 5 days.
Vit B12 deficiency so started PO supplement.
Discharge today on Percocet, Vit B12 supplement, and prednisone taper. Advvised patient to reschedule rheum.
Assessment / Plan
Assessment / Plan
Impression:
Mr. Edward Lange is a 54-year-old male, with a PMH notable for arthralgia, chronic pain, hypertension, hyperlipidemia, who is presenting from home with symmetric multifocal joint pain (bilateral shoulders, bilateral hips/low back, and bilateral
calves) that prevented him from getting up from the floor for few hours after a fall/slip from a chair. EMS was called to bring to the hospital.
Overnight before coming to the ED, he had significant hip pain. Stated he tried to walk from his bed to the recliner and it took him approximately 45 minutes even though it was less than 20 feet distance. While in a recliner patient tried to get
up and had a fall. Patient was on the floor for few hours. EMS was called. Patient's he was unable to lift himself up on the floor due to excruciating hip pain. Also currently stating of bilateral shoulder pain. States of chronic back pain due
to herniated disc. Denies any recent fevers. Denies any viral upper respiratory tract infections.
Patient stated his arthralgia started about 1 month ago. Stated he received shingles vaccine and a week or so afterwards he started noticing bilateral shoulder pain and hip pain. States he recently underwent left knee repair on 06/28/2025 at [facility]
and initially thought that he was compensating on the right leg and thus the pain was getting worse. However after the surgery patient stated persistent pain.
Patient states of diffuse bilateral shoulder and bilateral hip pain. States the pain mildly improves upon standing up.
- However while he is trying to flex his knee or hip states of excruciating hip pain which radiating to the calfs.
- Also states of unable to left bilateral shoulder due to excruciating pain. States the pain is sharp in nature. States he saw his primary care doctor and underwent blood work.
Patient stated his pain decreased during both courses of prednisone prescribed by his PCP and then in the ED earlier this month on 07/16/2025, and his pain returned after it was weaned off. He came to the ED earlier this month for similar symptoms.
ED course:
Labs
CBC and CMP showed no clinically significant abnormalities.
CPK 30 normal/low, CRP 33.5 marginally elevated but ESR 2 normal.
X-ray of the lumbar spine no acute abnormalities.
Interventions
- Received Dilaudid 1 mg x 2, ketorolac 50 mg, oxycodone 5 mg, acetaminophen 975 mg x 2, the patient stated he did not experience pain relief
- ED physician suspected polymyositis. Decadron 10 mg
Plan:
#Bilateral shoulder and hip pain likely secondary to autoimmune condition and suspected polymyalgia rheumatica versus low likelihood of polymyositis versus diffuse arthritis
DDx includes: PMR, polymyositis, Lyme disease, osteoarthritis, other rheumatologic disorder
CRP was elevated. ESR normal. CK was normal. TSH was recently checked and found to be normal
Patient says his symptoms improved with both courses of prednisone in the past.
Status post 10 mg of Decadron 08/03/2025 in ED
� Start patient on prednisone 50 mg daily 08/04/2025. Start 40 mg the next day for 5 days, then 30 mg for 5 days, 20 mg 5 days, 10 mg 5 days, and 5 mg 5 days, or until he sees rheumatology.
� Patient probably will need to continue on prednisone until outpatient rheumatology follow-up.
#Subacute pain in bilateral shoulders hips
#Lumbar degenerative disease
Pain control
�Tylenol 975 mg p.o. 3 times daily, oxycodone 5 mg p.o. every 4 as needed for moderate pain, and morphine 2 mg IV every 4 hrs as needed for severe pain
PT: Recommended outpatient therapy
#Primary hypertension
Continue with Norvasc 10 mg p.o. daily and losartan 25 mg p.o. daily
#Vit B12 deficiency
B12 220
� 1000 mcg B12 PO daily (for 7 days)
DVT ppx Lovenox
Diet regular
Anticipated Discharge: Today
Subjective/Interval History
-
Date of Service: August 04, 2025
No acute events overnight. Patient endorses continued pain in bilateral shoulders and bilateral hips that radiate down to his bilateral calves. Patient states his pain is 3 out of 10, improved from 15 out of 10.
Patient confirmed that he has not felt this pain before these last 4 to 6 weeks.
Objective Data
-
Labs:
Laboratory Results
08/04/25
06:17
WBC 9.8
Hgb 14.8
Hct 43.7
Plt Count 277
Sodium 140
Potassium 4.4 D
Chloride 107
Carbon Dioxide 26
BUN 23 H
Creatinine 0.9
Glucose 130 H
Calcium 9.6
Vital Signs:
Vital Signs
Temp Pulse Resp BP Pulse Ox
97.8 F 68 18 131/81 95
08/03/25 23:04 08/03/25 23:04 08/03/25 23:04 08/03/25 23:04 08/03/25 23:04
Review of Systems
-
History Source: Patient
All other systems: Reviewed and negative
Physical Exam
-
General: Well Developed, Well Nourished and Conversant
HEENT: Normocephalic, Atraumatic, Anicteric, No Ptosis, Nose Appears Normal and Ears Appear Normal
Respiratory: Clear to Auscultation
Cardiac: Regular Rhythm and S1/S2
GI: Soft, Nontender, Nondistended and Normal Bowel Sounds
Musculoskeletal: No Clubbing, No Cyanosis, No Edema and Other (5 out of 5 strength elbow flexion extension and knee flexion. 4 out of 5 strength to shoulder abduction and hip flexion.)
Skin: Warm and Dry
Neuro: Awake and Alert
Psych: Calm
[2025-08-04] MEDS: TYLENOL 975 MG PO ×2 (08:45→15:13)
[2025-08-04] MEDS: DELTASONE 50 MG PO (08:46)
[2025-08-04] MEDS: NORVASC 10 MG PO (08:46)
[2025-08-04] MEDS: PROTONIX 40 MG PO (08:46)
[2025-08-04] MEDS: COZAAR 25 MG PO (08:46)
[2025-08-04 09:47] VITALS: BP 154/83; PULSE 68; O2SAT 98
[2025-08-04 11:36] LABS: Lyme Antibody Screen, EIA Negative (Negative)
[2025-08-04] MEDS: MORPHINE SULFATE 2 MG IV (12:19)
[2025-08-04 15:15] VITALS: BP 139/79
--- NOTE | 2025-08-04 16:26 | CM ---
Alert awake oriented patient who lives with his [place] , Son Valente in a condo with 0 step to enter.He is independent in driving and in all activities of daily living.He was offered VN he declined need.Observation letter reviewed with patient
signed on chart.
No VN hx / No SNF history
Pharmacy [facility]
PCP DR Handley
PLAN Home Declined VN
--- NOTE | 2025-08-04 18:53 | W.DCSUMMARY ---
Addendum entered and electronically signed by Bhupinder Peguero MD 08/04/25 22:33:
Read, reviewed, and agree. See same day progress note for additional details. d/w patient re pred taper to be set by applications sales representative. DC with #20 percocet
Bryan Peguero MD
Original Note:
Documented by User: Jessy Ryan MD, Resident 08/04/25 18:57
Discharge Summary
Discharge Data
Date of Admission: 08/03/25
Date of Discharge: 08/04/25
Total time spent discharging patient (in min): 45
-
Pending Results: No
Hospital Course
Impression:
Mr. Edward Lange is a 54-year-old male, with a PMH notable for arthralgia, chronic pain, hypertension, hyperlipidemia, who is presenting from home with symmetric multifocal joint pain (bilateral shoulders, bilateral hips/low back, and bilateral
calves) that prevented him from getting up from the floor for few hours after a fall/slip from a chair. EMS was called to bring to the hospital.
Overnight before coming to the ED, he had significant hip pain. Stated he tried to walk from his bed to the recliner and it took him approximately 45 minutes even though it was less than 20 feet distance. While in a recliner patient tried to get
up and had a fall. Patient was on the floor for few hours. EMS was called. Patient's he was unable to lift himself up on the floor due to excruciating hip pain. Also currently stating of bilateral shoulder pain. States of chronic back pain due
to herniated disc. Denies any recent fevers. Denies any viral upper respiratory tract infections.
Patient stated his arthralgia started about 1 month ago. Stated he received shingles vaccine and a week or so afterwards he started noticing bilateral shoulder pain and hip pain. States he recently underwent left knee repair on 06/28/2025 at [facility]
and initially thought that he was compensating on the right leg and thus the pain was getting worse. However after the surgery patient stated persistent pain.
Patient states of diffuse bilateral shoulder and bilateral hip pain. States the pain mildly improves upon standing up.
- However while he is trying to flex his knee or hip states of excruciating hip pain which radiating to the calfs.
- Also states of unable to left bilateral shoulder due to excruciating pain. States the pain is sharp in nature. States he saw his primary care doctor and underwent blood work.
Patient stated his pain decreased during both courses of prednisone prescribed by his PCP and then in the ED earlier this month on 07/16/2025, and his pain returned after it was weaned off. He came to the ED earlier this month for similar symptoms.
ED course:
Labs
CBC and CMP showed no clinically significant abnormalities.
CPK 30 normal/low, CRP 33.5 marginally elevated but ESR 2 normal.
X-ray of the lumbar spine no acute abnormalities.
Interventions
- Received Dilaudid 1 mg x 2, ketorolac 50 mg, oxycodone 5 mg, acetaminophen 975 mg x 2, the patient stated he did not experience pain relief
- ED physician suspected polymyositis. Decadron 10 mg
ED physician discussed at length with the patient to form a plan with shared decision making. The physician advised the patient that an admission is likely less effective for the patient's pain, whereas going to his rheumatology appointment the
next day would be more meaningful for investigating the root cause. The patient stated that he is aware of the downsides of admission. Patient reiterated that he feels his pain prevents him from taking care of himself at home, and requested
admission.
Plan:
#Bilateral shoulder and hip pain likely secondary to autoimmune condition and suspected polymyalgia rheumatica versus low likelihood of polymyositis versus diffuse arthritis
DDx includes: PMR, polymyositis, Lyme disease, osteoarthritis, other rheumatologic disorder
CRP was elevated. ESR normal. CK was normal. TSH was recently checked and found to be normal
Status post 10 mg of Decadron 08/03/2025 in ED
� Start patient on prednisone 50 mg daily 08/04/2025. Start 40 mg the next day for 5 days, then 30 mg for 5 days, 20 mg 5 days, 10 mg 5 days, and 5 mg 5 days, or until he sees rheumatology.
#Subacute pain in bilateral shoulders hips
#Lumbar degenerative disease
Pain control
�Tylenol 975 mg p.o. 3 times daily, oxycodone 5 mg p.o. every 4 as needed for moderate pain, and morphine 2 mg IV every 4 hrs as needed for severe pain
PT: Recommended outpatient therapy
#Primary hypertension
Continue with Norvasc 10 mg p.o. daily and losartan 25 mg p.o. daily
#Vit B12 deficiency
B12 220
� 1000 mcg B12 PO daily (for 7 days)
Discharge Plan
-
Patient Disposition: Home (Routine Discharge)
Discharge Diagnosis/Procedures: Muscle and/or joint pain
Vitamin B12 deficiency
Hypertension
Condition: Good
Diet: No restrictions
Activity: As tolerated and With Walker
Driving Restrictions: As prior to admission
Referrals:
Silvia Handley DO [Family Provider]
Additional Discharge Medication Instructions: Please schedule and see rheumatology.
For the steroid (prednisone) taper, please take 40 mg for 5 days, then 30 mg for 5 days, then 20 mg for 5 days, then 10 mg for 5 days, then 5 mg for 10 days. If your applications sales representative alters the dosing during this taper, please follow your
applications sales representative instructions.
You were provided Percocet to take as needed for pain.
Since you are found to have low vitamin B12, please take the vitamin B12 oral supplement 1000 mcg daily for a week/7 days total.
It was a pleasure to be part of your care team.
Prescriptions:
New
(DME) walker
See Rx Instructions .Route .MEDSUPPLY Qty: 1 0RF
Rx Instructions:
As directed
prednisone 10 mg Tablet
10 mg PO DIRECTED Qty: 70 0RF
Rx Instructions:
taper instructions: 40 mg for 5 days, then 30 mg for 5 days, then 20 mg for 5 days, then 10 mg for 5 days, then 5 mg for 5 days.
prednisone 10 mg Tablet
5 mg PO DIRECTED Qty: 5 0RF
Rx Instructions:
taper instructions: After taking 10 mg tablets for 5 days, finish your taper with 5 mg for 5 days
cyanocobalamin (vitamin B-12) 500 mcg Tablet
1,000 mcg PO DAILY Qty: 7 0RF
Continued
methocarbamol 500 mg Tablet
1,000 mg PO QID
amlodipine [Norvasc] 10 mg Tablet
10 mg PO DAILY
pantoprazole [Protonix] 40 mg Tablet,Delayed Release (Dr/Ec)
40 mg PO DAILY
losartan 25 mg Tablet
25 mg PO DAILY
Discharge Orders:
Discharge Patient (As Directed); Ordered 08/04/25
Ordered By: Jessy Ryan
Discharge Date and Time
Discharge Date/Time: 08/04/25 18:05
Print Language: MALDIVIAN

Documented by User: Bhupinder Peguero MD 08/04/25 22:27
Discharge Summary
Discharge Data
Date of Admission: 08/03/25
Date of Discharge: 08/04/25
Discharge Plan
-
Patient Disposition: Home (Routine Discharge)
Discharge Diagnosis/Procedures: Muscle and/or joint pain
Vitamin B12 deficiency
Hypertension
Condition: Good
Diet: No restrictions
Activity: As tolerated and With Walker
Driving Restrictions: As prior to admission
Referrals:
[place],Silvia, DO [Family Provider]
Additional Discharge Medication Instructions: Please schedule and see rheumatology.
For the steroid (prednisone) taper, please take 40 mg for 5 days, then 30 mg for 5 days, then 20 mg for 5 days, then 10 mg for 5 days, then 5 mg for 10 days. If your applications sales representative alters the dosing during this taper, please follow your
applications sales representative instructions.
You were provided Percocet to take as needed for pain.
Since you are found to have low vitamin B12, please take the vitamin B12 oral supplement 1000 mcg daily for a week/7 days total.
It was a pleasure to be part of your care team.
Prescriptions:
New
(DME) walker
See Rx Instructions .Route .MEDSUPPLY Qty: 1 0RF
Rx Instructions:
As directed
prednisone 10 mg Tablet
10 mg PO DIRECTED Qty: 70 0RF
Rx Instructions:
taper instructions: 40 mg for 5 days, then 30 mg for 5 days, then 20 mg for 5 days, then 10 mg for 5 days, then 5 mg for 5 days.
prednisone 10 mg Tablet
5 mg PO DIRECTED Qty: 5 0RF
Rx Instructions:
taper instructions: After taking 10 mg tablets for 5 days, finish your taper with 5 mg for 5 days
cyanocobalamin (vitamin B-12) 500 mcg Tablet
1,000 mcg PO DAILY Qty: 7 0RF
Continued
methocarbamol 500 mg Tablet
1,000 mg PO QID
amlodipine [Norvasc] 10 mg Tablet
10 mg PO DAILY
pantoprazole [Protonix] 40 mg Tablet,Delayed Release (Dr/Ec)
40 mg PO DAILY
losartan 25 mg Tablet
25 mg PO DAILY
Discharge Orders:
Discharge Patient (As Directed); Ordered 08/04/25
Ordered By: Jessy Ryan
Discharge Date and Time
Discharge Date/Time: 08/04/25 18:05
Print Language: MALDIVIAN
== END 2025-08-04 18:05 | disposition home or self-care (01) ==
LOC: 4 EAST ACU 14:39
PROVIDERS: Physician Assistant; ADMITTING PHYSICIAN Hospitalist; ATTENDING PHYSICIAN Family Medicine; EMERGENCY PHYSICIAN Emergency Medicine; FAMILY PHYSICIAN Family Medicine Addiction Medicine
DX: M25.512 Pain in left shoulder (principal); M25.511 Pain in right shoulder; M47.816 Spondylosis without myelopathy or radiculopathy, lumbar region; M47.817 Spondylosis without myelopathy or radiculopathy, lumbosacral region; I10 Essential (primary) hypertension; K21.9 Gastro-esophageal reflux disease without esophagitis; E78.5 Hyperlipidemia, unspecified; M54.50 Low back pain, unspecified; M25.551 Pain in right hip; M25.552 Pain in left hip; E53.8 Deficiency of other specified B group vitamins; W07.XXXA Fall from chair, initial encounter; Y93.89 Activity, other specified; Y92.009 Unspecified place in unspecified non-institutional (private) residence as the place of occurrence of the external cause; Z90.49 Acquired absence of other specified parts of digestive tract; Z94.7 Corneal transplant status; G89.29 Other chronic pain; Z88.8 Allergy status to other drugs, medicaments and biological substances; Z79.899 Other long term (current) drug therapy
CPT/HCPCS: 72110; 80048; 80053; 82550; 82607; 85025; 85652; 86140; 86618; 87070; 96374; 96375; 96376; 97162; 99285; G0378

== ENCOUNTER → 2025-09-05 12:01 | Outpatient (REF) | payer BC, SELFPAY ==
[2025-09-05 13:09] LABS: C-Reactive Protein 10.10 mg/L (0.0-10.00)
== END ==
LOC: REG 12:01
PROVIDERS: ATTENDING PHYSICIAN Internal Medicine Rheumatology; FAMILY PHYSICIAN Family Medicine Addiction Medicine
DX: M15.0 Primary generalized (osteo)arthritis (principal); M35.3 Polymyalgia rheumatica; R79.82 Elevated C-reactive protein (CRP)
CPT/HCPCS: 36415; 85652; 86140; 86480

== ENCOUNTER → 2025-09-10 10:00 | Outpatient (REF) | payer BC, SELFPAY | LOC: REG 10:00 | PROVIDERS: ATTENDING PHYSICIAN Internal Medicine Rheumatology; FAMILY PHYSICIAN Family Medicine Addiction Medicine | DX: M15.0 Primary generalized (osteo)arthritis (principal); M35.3 Polymyalgia rheumatica; R79.82 Elevated C-reactive protein (CRP) | CPT/HCPCS: 36415; 86480 ==